=== PATIENT | female | born 1995 | race Asian ===

== ENCOUNTER 2021-10-24 19:52 | Emergency (ER) | payer SELFPAY ==
[2021-10-24 20:00] VITALS: BP 119/71; PULSE 117; RESP 17; TEMP 36.8; O2SAT 97; BMI 18.8
[2021-10-24] MEDS: SODIUM CHLORIDE 0.9% 1,000 ML 500 ML IV (20:47)
[2021-10-24 20:48] LABS: Add Manual Diff / Slide Review NO; Basophils Absolute Auto 100 /uL (0-100); Basophils Percent Auto 0.5 % (0-2); Eosinophils Absolute Auto 0 /uL (0-450); Eosinophils Percent Auto 0.1 % (2-4); Hematocrit 38.3 % (36-46); Hemoglobin 13.3 g/dL (12.0-16.0); Lymphocytes Absolute Auto 1200 /uL (1100-4500); Lymphocytes Percent Auto 9.8 % (25-40); Mean Corpuscular HGB Conc 34.8 % (30-36); Mean Corpuscular Hemoglobin 30.6 PG (26-34); Mean Corpuscular Volume 87.7 fL (80-100); Monocytes Absolute Auto 500 /uL (0-900); Monocytes Percent Auto 4.4 % (3-14); Neutrophils Absolute Auto 10200 /uL (1500-7000); Neutrophils Percent Auto 85.2 % (50-75); Platelet Count 213 X10^3/uL (150-400); Red Blood Cell Count 4.36 X10^6/uL (4.0-5.2); Red Cell Distribution Width 13.1 % (11.6-14.8)
--- NOTE | 2021-10-24 20:48 | ED_ITS ---
HPI - General Adult General Chief complaint: Abdominal Pain Stated complaint: Stomach Pain/Throwing Up Blood, Time Seen by Provider: 10/24/21 20:10 Source: patient Mode of arrival: Ambulatory History of Present Illness HPI narrative: 26-year-old female who is a at unknown dates although she states her last menstrual cycle was 08/01/2021 who is otherwise healthy he is here for evaluation of less than 24 hours of nausea and vomiting and lower abdominal pain. She denies any vaginal bleeding. No urinary symptoms. No change in bowel habits. She has yet to see Ob during this but is scheduled for nursing visit next week and a OB provider the week after. No fevers. Related Data Allergies Allergy/AdvReac Type Severity Reaction Status Date / Time No Known Drug Allergies Allergy Verified 10/24/21 20:00 Review of Systems Constitutional Constitutional: Denies fever(s) Cardiovascular Cardiovascular: Reports system reviewed and no additional complaints, except as documented Respiratory Respiratory: Reports system reviewed and no additional complaints, except as do cumented Gastrointestinal Gastrointestinal: Reports as per HPI and Reports system reviewed and no additional complaints, except as documented Genitourinary Genitourinary: Reports system reviewed and no additional complaints, except as documented Musculoskeletal Musculoskeletal: Reports system reviewed and no additional complaints, except as documented Integumentary/Breasts Skin/Breast: Reports system reviewed and no additional complaints, except as documented Neurologic Neurologic: Reports system reviewed and no additional complaints, except as docu mented Hematologic/Lymphatic On Anticoagulants: No Patient History Medical History Healthy adult Social History Smoking Status: Never smoker Smoking Status: Never smoker Substance Use Type: does not use Exam Initial Vital Signs Initial Vital Signs: Vital Signs Temperature 98.2 F 10/24/21 20:00 Pulse Rate 117 H 10/24/21 20:00 Respiratory Rate 17 10/24/21 20:00 Blood Pressure 119/71 10/24/21 20:00 Pulse Oximetry 97 10/24/21 20:00 Const General: cooperative and healthy appearing HENMT Head: normal to inspection and normocephalic Resp Effort & Inspection: normal respiratory effort Auscultation: clear to auscultation bilaterally Cardio Rate: tachycardic Rhythm: regular rhythm Skin General: no rashes or lesions noted Neuro General: patient alert, patient awake, patient oriented x3 and moves all extremities Speech: speech normal Extrem General: normal to inspection and capillary refill normal Psych Appearance: grossly normal and well kempt Course Orders Ordered: ED Orders 10/24/21 20:04 EKG-12 Lead Stat 10/24/21 20:10 Complete Blood Count AUTO DIFF Stat Comprehensive Metabolic Panel Stat HCG Quantitative /Beta subunit Stat Lipase Stat 10/24/21 20:49 US OB <= 14 weeks fetus Stat 10/24/21 21:23 ABO RH Type Stat Discontinued Medications Sodium Chloride (Normal Saline 0.9%) 1,000 mls @ 500 mls/hr IV BOLUS ONE Stop: 10/24/21 22:19 Last Infusion: 10/24/21 23:07 Dose: 0 mls/hr Documented by: Admin: 10/24/21 20:47 Dose: 500 mls/hr Documented by: ROMARIO Ondansetron HCl (Ondansetron 4 Mg/2 Ml Inj) 4 mg IV NOW ONE Stop: 10/24/21 20:49 Last Admin: 10/24/21 21:00 Dose: 4 mg Documented by: ROMARIO Vital Signs Vital signs: Vital Signs - 8 hr 10/24/21 20:00 10/24/21 21:37 10/25/21 00:09 Temperature 98.2 F Pulse Rate 117 H 104 H 127 H Respiratory Rate 17 20 Blood Pressure 119/71 91/50 L 121/55 L Pulse Oximetry 97 99 98 Medical Decision Making Lab Data Lab results reviewed: Yes I reviewed the patient's lab results. Result diagrams: 10/24/21 20:10 10/24/21 20:10 Labs: Lab Results 10/24/21 10/24/21 10/24/21 Range/Units 20:10 20:10 20:10 WBC 12.0 H (4.5-11.0) X10^3/uL RBC 4.36 (4.0-5.2) X10^6/uL Hgb 13.3 (12.0-16.0) g/dL Hct 38.3 (36-46) % MCV 87.7 (80-100) fL MCH 30.6 (26-34) PG MCHC 34.8 (30-36) % RDW 13.1 (11.6-14.8) % Plt Count 213 (150-400) X10^3/uL Neut % (Auto) 85.2 H (50-75) % Lymph % (Auto) 9.8 L (25-40) % [place] % (Auto) 4.4 (3-14) % Eos % (Auto) 0.1 L (2-4) % Baso % (Auto) 0.5 (0-2) % Neut # (Auto) 78452 H (1876-6484) /uL Lymph # (Auto) 1200 (0066-3551) /uL [place] # (Auto) 500 (0-900) /uL Eos # (Auto) 0 (0-450) /uL Baso # (Auto) 100 (0-100) /uL Sodium 137 (137-145) mmol/L Potassium 3.7 (3.4-5.1) mmol/L Chloride 101 (98-107) mmol/L Carbon Dioxide 25 (22-32) mmol/L BUN 15 (7-17) mg/dL Creatinine 0.58 (0.52-1.04) mg/dL Estimated GFR > 60 (>60) mL/min BUN/Creatinine Ratio 25.9 H (6-22) Glucose 104 H (70-100) mg/dL Calcium 9.8 (8.4-10.2) mg/dL Total Bilirubin 0.3 (0.2-1.3) mg/dL AST 35 (14-36) IU/L ALT 24 (<35) IU/L Alkaline Phosphatase 67 (38-126) U/L Total Protein 8.8 H (6.3-8.2) g/dL Albumin 4.9 (3.5-5.0) g/dL Globulin 3.9 (1.7-4.1) g/dL Albumin/Globulin Ratio 1.3 (1.0-2.8) Lipase 100 (23-300) U/L HCG, Quant 7637.1 mIU/mL Blood Type 10/24/21 Range/Units 21:23 WBC (4.5-11.0) X10^3/uL RBC (4.0-5.2) X10^6/uL Hgb (12.0-16.0) g/dL Hct (36-46) % MCV (80-100) fL MCH (26-34) PG MCHC (30-36) % RDW (11.6-14.8) % Plt Count (150-400) X10^3/uL Neut % (Auto) (50-75) % Lymph % (Auto) (25-40) % [place] % (Auto) (3-14) % Eos % (Auto) (2-4) % Baso % (Auto) (0-2) % Neut # (Auto) (1871-6548) /uL Lymph # (Auto) (0285-9059) /uL [place] # (Auto) (0-900) /uL Eos # (Auto) (0-450) /uL Baso # (Auto) (0-100) /uL Sodium (137-145) mmol/L Potassium (3.4-5.1) mmol/L Chloride (98-107) mmol/L Carbon Dioxide (22-32) mmol/L BUN (7-17) mg/dL Creatinine (0.52-1.04) mg/dL Estimated GFR (>60) mL/min BUN/Creatinine Ratio (6-22) Glucose (70-100) mg/dL Calcium (8.4-10.2) mg/dL Total Bilirubin (0.2-1.3) mg/dL AST (14-36) IU/L ALT (<35) IU/L Alkaline Phosphatase (38-126) U/L Total Protein (6.3-8.2) g/dL Albumin (3.5-5.0) g/dL Globulin (1.7-4.1) g/dL Albumin/Globulin Ratio (1.0-2.8) Lipase (23-300) U/L HCG, Quant mIU/mL Blood Type O Positive Imaging Data US - OB: Radiologist's Impression: [address] [address] Ultrasound Report Signed Patient: Arianne Livingston MR#: [id number] : 1995 Acct:[id number] Age/Sex: 26 / F Date of Service: 10/24/21 Loc: ED Accession Number: [id number] ?? Procedure: US OB <= 14 weeks fetus Ordering Provider: Sebastián Christine D.O. PROCEDURE:? US OB <= 14 WEEKS FETUS ? INDICATIONS:? PAIN ? OUTSIDE/PRIOR DATING DATA:? Last menstrual period (LMP):? 08/01/2021.? LMP-based estimated date of delivery (GABRIEL):? 05/08/2022.? First dating scan (date and location):? 10/24/2021.? Estimated date of delivery (GABRIEL) from first dating scan:? 06/14/2022. ? TECHNIQUE:? Real-time scanning was performed of the fetus and maternal pelvic organs, with image documentation.? Endovaginal scanning was also performed to better visualize the fetus and maternal ovaries.? ? COMPARISON:? None. ? FINDINGS:? ? Embryo:? There is an intrauterine with a gestational sac, yolk sac, and pole identified.? The pole appears small relative to the size of the gestational sac with a crown-rump length measuring 0.8 cm corresponding to gestational age of 6 weeks 5 days.? No heart motion was identified on grayscale images, M-mode Doppler, or color Doppler interrogation.? There are adjacent indistinct perigestational hypoechoic regions suggestive of subchorionic hematomas. ? Ovaries:? The ovaries were not discretely visualized.? No adnexal masses identified. ? ? IMPRESSION:? ? 1. Intrauterine demonstrated with a small pole relative to the gestational sac.? Given discordance of pole measurements compared to LMP as well as absence of visualized heart motion, the findings are compatible with demise. ? We strive to produce accurate, complete, and clear reports of imaging services. To assist us in improving patient care, this report was composed using standard report templates and voice recognition software. Therefore, it may contain abnormal punctuation, insertions and/or omissions. Occasional wrong-word or sound-alike substitutions may occur. Though we review the report and make efforts to correct it, we do recommend that the report be read carefully in proper context to recognize any text inaccuracies. ? ? ? Dictated by: Cooper Rivera M.D. on 10/24/2021 at 22:30 ? ? Approved by: Cooper Rivera M.D. on 10/24/2021 at 22:37 ECG Data Attestation: I personally reviewed and interpreted this ECG as follows: Interpretation: Sinus tachycardia Ventricular rate 109 Normal axis Normal QRS Normal QTC No ST T wave changes MDM Narrative Medical decision making narrative: The ultrasound today is concerning for IUFD. According to patient's last sexual contact and also last menstrual. She should be approximately 10-11 weeks gestation however ultrasound today is more consistent with a 6 week fetus. Patient is Rh positive. Had a discussion with the patient regarding the ultrasound findings. She was informed that the findings today are consistent with a miscarriage. We discussed options to include Cytotec verses waiting to see if she passes the products of conception on her own. Patient expressed understanding of the ultrasound findings and the options however she would like to hold on any Cytotec for now. Was given information for follow-up with OB. She was given strict return precautions with regard to vaginal bleeding. She expressed understanding and agreement. Discharge Plan Departure Patient Disposition: Home Clinical Impression: Miscarriage, Abdominal pain Instructions: DI for Miscarriage Activity Restrictions/Additional Instructions: Tomorrow you do need to contact the OB provider at the number provided below to schedule follow-up the beginning of next week. Return to the emergency department for any new symptoms to include fevers, bleeding more than several pads an hour for more than several hours in a row or any other worsening symptoms. I would not be surprised if over the next 24-48 hours you do start to have menstrual like cramping and also vaginal bleeding. Referrals: Miscellaneous,MD Phoebe [Primary Care Provider] - Luis Garcia MD [Physician] - Chelsi Haywood MD [Physician] -
--- NOTE | 2021-10-24 20:49 | DI.US.S_ITS ---
PROCEDURE: US OB <= 14 WEEKS FETUS INDICATIONS: PAIN OUTSIDE/PRIOR DATING DATA: Last menstrual period (LMP): 08/01/2021. LMP-based estimated date of delivery (GABRIEL): 05/08/2022. First dating scan (date and location): 10/24/2021. Estimated date of delivery (GABRIEL) from first dating scan: 06/14/2022. TECHNIQUE: Real-time scanning was performed of the fetus and maternal pelvic organs, with image documentation. Endovaginal scanning was also performed to better visualize the fetus and maternal ovaries. COMPARISON: None. FINDINGS: Embryo: There is an intrauterine with a gestational sac, yolk sac, and pole identified. The pole appears small relative to the size of the gestational sac with a crown-rump length measuring 0.8 cm corresponding to gestational age of 6 weeks 5 days. No heart motion was identified on grayscale images, M-mode Doppler, or color Doppler interrogation. There are adjacent indistinct perigestational hypoechoic regions suggestive of subchorionic hematomas. Ovaries: The ovaries were not discretely visualized. No adnexal masses identified. IMPRESSION: 1. Intrauterine demonstrated with a small pole relative to the gestational sac. Given discordance of pole measurements compared to LMP as well as absence of visualized heart motion, the findings are compatible with demise. We strive to produce accurate, complete, and clear reports of imaging services. To assist us in improving patient care, this report was composed using standard report templates and voice recognition software. Therefore, it may contain abnormal punctuation, insertions and/or omissions. Occasional wrong-word or sound-alike substitutions may occur. Though we review the report and make efforts to correct it, we do recommend that the report be read carefully in proper context to recognize any text inaccuracies. Dictated by: Cooper Rivera M.D. on 10/24/2021 at 22:30 Approved by: Cooper Rivera M.D. on 10/24/2021 at 22:37
[2021-10-24 20:50] LABS: Alanine Aminotransferase 24 IU/L (<35); Albumin 4.9 g/dL (3.5-5.0); Albumin Globulin Ratio 1.3 (1.0-2.8); Alkaline Phosphatase 67 U/L (38-126); Aspartate Aminotransferase 35 IU/L (14-36); BUN Creatinine Ratio 25.9 (6-22); Bilirubin Total 0.3 mg/dL (0.2-1.3); Blood Urea Nitrogen 15 mg/dL (7-17); Calcium 9.8 mg/dL (8.4-10.2); Carbon Dioxide 25 mmol/L (22-32); Chloride 101 mmol/L (98-107); Estimated Glomerular Filt Rate > 60 mL/min (>60); Globulin 3.9 g/dL (1.7-4.1); Glucose 104 mg/dL (70-100); HEMOLYSIS < 15 (0-50); Lipase 100 U/L (23-300); Potassium 3.7 mmol/L (3.4-5.1); Sodium 137 mmol/L (137-145); Total Protein 8.8 g/dL (6.3-8.2)
[2021-10-24] MEDS: ONDANSETRON 4 MG/2 ML INJ IV (21:00)
[2021-10-24 21:05] LABS: HCG Quantitative /Beta subunit 7637.1 mIU/mL
[2021-10-24 21:37] VITALS: BP 91/50; PULSE 104; O2SAT 99
[2021-10-25 00:09] VITALS: BP 121/55; PULSE 127; RESP 20; O2SAT 98
--- NOTE | 2021-10-25 00:16 | PC.NURSE ---
Provider aware of HR.
== END 2021-10-25 00:13 | disposition home or self-care (01) ==
PROVIDERS: Emergency Provider Emergency Medicine
DX: O02.1 Missed abortion (principal); R10.30 Lower abdominal pain, unspecified
CPT/HCPCS: 36415; 76801; 76817; 80053; 83690; 84702; 85025; 86900; 86901; 93005; 96361; 96374; 99284; J2405

== ENCOUNTER → 2021-10-26 11:16 | Outpatient (CLI) | payer SELFPAY ==
[2021-10-26 13:22] LABS: HCG Quantitative /Beta subunit 6553 mIU/mL
== END ==
PROVIDERS: Referring Provider Obstetrics & Gynecology; Visit Provider Obstetrics & Gynecology
DX: O20.9 Hemorrhage in early pregnancy, unspecified (principal)
CPT/HCPCS: 36415; 84702

== ENCOUNTER → 2021-10-29 11:08 | Outpatient (CLI) | payer SELFPAY ==
[2021-10-29 11:59] LABS: HCG Quantitative /Beta subunit 3311.3 mIU/mL
== END ==
PROVIDERS: Referring Provider Obstetrics & Gynecology; Visit Provider Obstetrics & Gynecology
DX: O03.9 Complete or unspecified spontaneous abortion without complication (principal)
CPT/HCPCS: 36415; 84702

== ENCOUNTER → 2021-10-31 09:21 | Outpatient (CLI) | payer SELFPAY ==
[2021-10-31 10:33] LABS: COVID19 -Nasal RAPID Negative (Negative)
== END ==
PROVIDERS: Visit Provider Obstetrics & Gynecology
DX: Z01.812 Encounter for preprocedural laboratory examination (principal); Z20.822 Contact with and (suspected) exposure to COVID-19
CPT/HCPCS: 87635

== ENCOUNTER 2021-11-01 07:36 | Day surgery (SDC) | payer SELFPAY ==
[2021-11-01] VITALS (9 sets, daily range): BP systolic 105–120; BP diastolic 55–74; PULSE 54–111; RESP 13–20; TEMP 36.6–36.9; O2SAT 97–99
--- NOTE | 2021-11-01 | PATH_ITS ---
[facility] Accession Number: [id number] . 01 Material submitted: . product of conception - PRODUCTS OF CONCEPTION . 01 Diagnosis: Uterine Contents: Immature chorionic villi with degenerative changes and decidual tissues. Negative for changes of gestational trophoblastic disease. [facility] 11/04/2021 1909 Local . 01 Electronically signed: . Sandra Parra MD, Pathologist NPI- [id number] . 01 Gross description: . Received in a container of formalin, labeled products of conception, are multiple hemorrhagic fragments of decidua admixed with spongy chorionic villi and blood clot measuring 5.0 x 4.0 x 1.5 cm in aggregate dimension. No parts or evidence of molar are grossly appreciated. Sport Psychologist sections are submitted in cassette A1. ([id number]) /R 11/02/2021 1734 Local . 01 Pathologist provided ICD-10: O02.1 . 01 CPT . 213495 Specimen Comment: A courtesy copy of this report has been sent to [phone] Performed at: 01 [facility] [address] [place] [address], [place], [place] [id number] MD Cooper Stanford MD Phone: [phone]
[2021-11-01] MEDS: LACTATED RINGERS 1,000 ML 84 ML IV (08:05)
--- NOTE | 2021-11-01 09:56 | P.HPOB_ITS ---
History of Present Illness History of Present Illness Reason for admission: missed Narrative: Guillermina is a 26-year-old , LMP 08/01/2021 who presents with positive tests, spotting bleeding, and cramping.? Patient was seen in the emergency department 10/24/2021 and her HCG at that time was 7637 but on 10/26 it had fallen to 6553 and today has fallen further to 3311.? The patient is having some a light bleeding and some cramping but has not passed any tissue.? BT O+. After consideration of all options, the patient has opted for suction curettage of the uterus and is admitted at this time for her surgery. [facility] Medical History Healthy adult Social History household members: significant other Smoking Status: Never smoker alcohol intake: never Meds Home Medications and Allergies Home Medications Medication Instructions Recorded Confirmed Type No Known Home Medications 10/29/21 10/30/21 History Allergies Allergy/AdvReac Type Severity Reaction Status Date / Time No Known Drug Allergies Allergy Verified 10/24/21 20:00 Review of Systems Review of Systems Narrative: Problem-specific ROS positives included in HPI Exam Vital Signs (past 8 hours): - 11/01/21 07:54 Temperature 97.8 F Pulse Rate 54 L Respiratory Rate 16 Blood Pressure 113/71 Pulse Oximetry 98 Oxygen Delivery Method Room Air Const General: cooperative, comfortable and well developed [facility] Head: normal to inspection, normocephalic and atraumatic Eyes General: appearance normal, both eyes and all related structures Neck Neck: normal visual inspection Resp Effort & Inspection: normal respiratory effort and able to speak in complete sen tences Auscultation: clear to auscultation bilaterally Cardio Rate: regular rate Rhythm: regular rhythm Heart Sounds: S1 normal, S2 normal and no murmurs GI Inspection: normal to inspection Palpation: soft and no hepatosplenomegaly General: other (Exam deferred pending EUA) Extrem Right lower extremity: normal to inspection Psych Appearance: grossly normal Mental Status: mental status grossly normal Speech and Movement: speech and movement normal Mood: congruent mood Affect: normal affect Attitude: cooperative Thought Process: normal Thought Content: normal Judgment: judgment good Assessment & Plan Assessment and plan (1) Missed : Status: Acute Plan 1. Patient counseled regarding alternatives, risks, benefits, and potential complications associated with suction curettage of the uterus. With full understanding of the above, a written consent was executed, signed, and witnessed this date. Time Spent With Patient Critical Care time: I spent a total of [] minutes of critical care time on this patient's care today; this time is exclusive of procedural time.
--- NOTE | 2021-11-01 10:00 | PM.PREOP ---
Pre-operative Note COVID-19 COVID-19 status: Negative Result date/Date tested (Pos, Neg/Pending): 10/31/21 Criteria for continued procedure: Non-surgical alternatives not available or appropriate per current SOC Interval Note History & Physical reviewed/Exam performed by Physician: Yes Changes to H&P: No
--- NOTE | 2021-11-01 10:21 | SUR.OPER ---
Lithotomy on padded OR bed, head on pillow, arms secured on padded arm boards at <90 degrees abduction. Legs secured in padded yellow fins stirrups.
[2021-11-01] MEDS: METHYLERGONOVINE 0.2 MG/ML VIAL IM (10:49)
--- NOTE | 2021-11-01 10:54 | P.OP_ITS ---
Operative Date/Time/Diagnoses Date of procedure: 11/01/21 Time of procedure: 09:50 Pre-op diagnosis: Missed Post-op diagnosis: same Procedure & Clinicians Procedure: Procedures Operation Date: 11/01/21 09:15 Actual Procedure Side Surgeon p Suction Curettage of the Uterus Luis Garcia MD Indications: Guillermina is a 26-year-old , LMP 08/01/2021 who presents with positive tests, spotting bleeding, and cramping.? Patient was seen in the emergency department 10/24/2021 and her HCG at that time was 7637 but on 10/26 it had fallen to 6553 and today has fallen further to 3311.? The patient is having some a light bleeding and some cramping but has not passed any tissue.? BT O+.? After consideration of all options, the patient has opted for suction curettage of the uterus and is admitted at this time for her surgery. Surgeon: Luis Garcia Anesthesia Type: General Operative Notes Findings: Moderate amount of POC's within the endometrial cavity. Pre-evacuation the uterus is @ 8 weeks in size and 6 weeks size post-evacuation. Closure Type: not applicable Specimen(s): products of conception Estimated blood loss (mL): 25 Blood products transfused: none Procedure in detail: With the patient under satisfactory general anesthesia in the modified dorsal lithotomy position, the perineum, vagina, and lower abdomen were prepped and draped in the usual fashion for D&C. A pre-surgical safety time-out was then ta adria in accordance with [facility] Main OR protocols. A bivalve speculum was inserted in the vagina, the cervix visualized, and the anterior lip grasped with a single-tooth tenaculum. Sequential dilation of the endocervical canal with Hegar dilators was performed to a diameter of 9 mm. An 8 mm curved suction curette was then introduced into the endometrial cavity and suction curettage performed. Moderate amounts of necrotic POCs were obtained and submitted in formalin for pathologic evaluation. Once complete evacuation of the uterus was assured, the suction curette was removed, the tenaculum removed from the anterior lip of the cervix, and the speculum removed from the vagina. Patient received Pitocin 10 mg IM intraop. The patient was then awakened from surgery and transferred to the PACU for a period of observation and recovery having tolerated the procedure well. Complications: none Post-operative Condition: stable Disposition: PACU Plan for aftercare: Routine post-op care. Vibramycin 100 mg PO BID x 5 days. Follow-up in 2 weeks or as needed.
--- NOTE | 2021-11-01 11:53 | SUR.PHASEII ---
Assumed care from Sofi d/c instructions discussed with , pt not wanting to hear at that time. Pt left when ready and left in stable condition.
== END 2021-11-01 11:42 | disposition home or self-care (01) ==
PROVIDERS: Referring Provider Obstetrics & Gynecology; Visit Provider Obstetrics & Gynecology
PROC: (CPT 58120; principal; 2021-11-01 09:15)
DX: O02.1 Missed abortion (principal); Z3A.10 10 weeks gestation of pregnancy
CPT/HCPCS: 59820; J1100; J1885; J2210; J2250; J2704; J3010

== ENCOUNTER 2022-10-23 12:49 | Emergency (ER) | payer OTHER, SELFPAY ==
[2022-10-23 12:51] VITALS: BP 109/59; PULSE 116; RESP 15; TEMP 36.5; O2SAT 99
--- NOTE | 2022-10-23 13:06 | ED.ABDPAIN ---
HPI - Abdominal Pain General Chief Complaint: Abdominal Pain Stated Complaint: Right lower stomach pain Time Seen by Provider: 10/23/22 12:59 Source: patient Mode of arrival: Ambulatory History of Present Illness HPI narrative: 27-year-old female previously healthy nonsmoker presents with a chief complaint of right lower quadrant pain for the past 2 days or so. She states that a few days ago she noticed some right-sided back pain with an episode of vomiting and the following day developed right lower quadrant pain in addition to the back pain. She states it is largely present and seems to be worse when she moves and improves with rest. She is had a poor appetite and continues to be nauseated. She denies any fever or chills. Her last menstrual cycle was about 1 month ago. She denies runny nose, sore throat or cough. She has been a bit constipated. She denies any diarrhea, dysuria, frequency, urgency, vaginal bleeding or discharge. She states she is not sexually active. She had been seen at an outside facility last night with reassuring labs but your imaging. Related Data Previous Rx's Medication Instructions Recorded ketorolac 10 mg tablet 10 mg PO Q6H PRN pain #14 tabs 10/23/22 ondansetron 4 mg disintegrating 4 mg PO TID-QID PRN nausea and 10/23/22 tablet vomiting #10 tabs Allergies Allergy/AdvReac Type Severity Reaction Status Date / Time No Known Drug Allergies Allergy Verified 10/23/22 12:51 Review of Systems Review of Systems Narrative: GENERAL: Denies chills, fatigue, malaise, fever, sweats. HEENT: Denies sinus pain, ear pain, sore throat, difficulty swallowing, dizziness. RESPIRATORY: Denies dyspnea, cough, wheezing, hemoptysis, sputum. CARDIOVASCULAR: Denies chest pain, palpitations, orthopnea, edema, GASTROINTESTINAL: See HPI : See HPI MUSCULOSKELETAL: denies weakness, joint pain, or bony pain SKIN: Denies rash, skin lesions, or other NEUROLOGIC: Denies weakness, headache, numbness, change in speech, confusion, seizures, incoordination. PSYCHIATRIC: No concerning psychosocial issues. 12 point review of systems is negative except for those stated above Patient History Medical History Anemia Headache Healthy adult History of Helicobacter pylori infection Scoliosis Surgical History Anesthesia History of knee surgery (~2006) Family History Mother Prediabetes Grandmother Hypertension Grandmother Breast cancer Social History household members: significant other Smoking Status: Never smoker alcohol intake: never Smoking Status: Never smoker Substance Use Type: does not use Exam Narrative Exam Narrative: GENERAL: [27] year old patient appears stated age. Well-developed patient, in mild distress. Obviously uncomfortable, rubbing her right lower abdomen HEAD: Atraumatic. Normocephalic. EYES: Pupils equal round and reactive. Extraocular motions intact. No scleral icterus. No injection or drainage. ENT: Nose without bleeding, purulent drainage. Throat without erythema, tonsillar hypertrophy or exudate. Airway patent. NECK: Trachea midline. Non tender CARDIOVASCULAR: Regular rate and rhythm without murmurs, gallops, or rubs. RESPIRATORY: Clear to auscultation. Breath sounds equal bilaterally. No wheezes, rales, or rhonchi. GASTROINTESTINAL: Abdomen soft, tender in the right lower quadrant r, nondistended. EXTREMITIES: No edema or joint tenderness. BACK: Nontender without deformity or crepitance. No flank tenderness. NEURO: AOx3. SKIN: No rash or erythema of visible areas Initial Vital Signs Initial Vital Signs: Vital Signs Temperature 97.7 F 10/23/22 12:51 Pulse Rate 116 H 10/23/22 12:51 Respiratory Rate 15 10/23/22 12:51 Blood Pressure 109/59 L 10/23/22 12:51 Pulse Oximetry 99 10/23/22 12:51 Oxygen Delivery Method Room Air 10/23/22 12:51 Course Orders Ordered: Discontinued Medications Sodium Chloride (Normal Saline 0.9%) 1,000 mls @ 1,000 mls/hr IV BOLUS ONE Stop: 10/23/22 14:34 Last Infusion: 10/23/22 14:40 Dose: 0 mls/hr Documented By: Admin: 10/23/22 13:44 Dose: 1,000 mls/hr Documented By: TWYLA Ketorolac Tromethamine (Ketorolac 30 Mg/Ml Vial) 15 mg IV NOW ONE Stop: 10/23/22 13:36 Last Admin: 10/23/22 13:45 Dose: 15 mg Documented By: TWYLA Ondansetron HCl (Ondansetron 4 Mg/2 Ml Inj) 4 mg IV NOW PRN PRN Reason: Nausea And Vomiting Last Admin: 10/23/22 13:44 Dose: 4 mg Documented By: TWYLA Vital Signs Vital signs: Vital Signs - 8 hr 10/23/22 12:51 Temperature 97.7 F Pulse Rate 116 H Respiratory Rate 15 Blood Pressure 109/59 L Pulse Oximetry 99 Oxygen Delivery Method Room Air MDM - Abdominal Pain Lab Data 10/23/22 13:21 10/23/22 13:21 Labs: Lab Results 10/23/22 10/23/22 Range/Units 13:21 13:21 WBC 8.6 (4.5-11.0) X10^3/uL RBC 4.09 (4.0-5.2) X10^6/uL Hgb 12.3 (12.0-16.0) g/dL Hct 35.6 L (36-46) % MCV 87.0 (80-100) fL MCH 30.1 (26-34) PG MCHC 34.7 (30-36) % RDW 12.1 (11.6-14.8) % Plt Count 188 (150-400) X10^3/uL Neut % (Auto) 81.0 H (50-75) % Lymph % (Auto) 11.7 L (25-40) % Boundary % (Auto) 6.6 (3-14) % Eos % (Auto) 0.4 L (2-4) % Baso % (Auto) 0.3 (0-2) % Neut # (Auto) 7000 (8858-4224) /uL Lymph # (Auto) 1000 L (8799-4820) /uL Boundary # (Auto) 600 (0-900) /uL Eos # (Auto) 0 (0-450) /uL Baso # (Auto) 0 (0-100) /uL Sodium 136 L (137-145) mmol/L Potassium 3.3 L (3.4-5.1) mmol/L Chloride 104 (98-107) mmol/L Carbon Dioxide 25 (22-32) mmol/L BUN 11 (7-17) mg/dL Creatinine 0.60 (0.52-1.04) mg/dL Estimated GFR > 60 (>60) mL/min BUN/Creatinine Ratio 18.3 (6-22) Glucose 107 H (70-100) mg/dL Calcium 8.8 (8.4-10.2) mg/dL Total Bilirubin 0.8 (0.2-1.3) mg/dL AST 23 (14-36) IU/L ALT 15 (<35) IU/L Alkaline Phosphatase 53 (38-126) U/L Total Protein 7.7 (6.3-8.2) g/dL Albumin 4.1 (3.5-5.0) g/dL Globulin 3.6 (1.7-4.1) g/dL Albumin/Globulin Ratio 1.1 (1.0-2.8) Lipase 66 (23-300) U/L Point of care testing: Point of Care Testing Test Results Negative Urine Dip Bedside Urine Glucose Negative Bedside Urine Bilirubin - Negative Bedside Urine Ketone - Negative Urine Specific [place] 1.010 Bedside Urine Occult Blood - Negative Bedside Urine pH 7.0 Bedside Urine Protein +/- 15 Bedside Urine Urobilinogen - Negative Bedside Urine Nitrite - Negative Bedside Urine Leukocytes - Negative Esterase MDM Narrative Medical decision making narrative: [27] year old patient presents with right lower quadrant pain Multiple etiologies for patient's symptoms considered including, but not limited to: [Ovarian versus kidney stone versus appendicitis versus other] Prior Charts reviewed in our EMR Primary Historian: patient Labs reviewed and interpreted by myself: No leukocytosis or left shift Imaging reviewed: Complex right ovarian cyst Patient's symptoms improved over duration of stay with above-stated therapies. Pain is well tolerated, she is tolerating orals, no indications for further evaluation at this time Findings and discharge diagnosis discussed with patient/family followed by verbalization of understanding Return precautions discussed with patient/family whom verbalize understanding of diagnosis and plan Discharge Plan Departure Patient Disposition: Home Clinical Impression: Ovarian cyst Instructions: DI for Ovarian Cyst Activity Restrictions/Additional Instructions: *You have been diagnosed with [right lower quadrant pain due to ovarian cyst] *What to do: *Please continue to take your regular medications as directed. [x ] New medication prescriptions sent to your pharmacy: [ [facility]] [ ] New medication written as a paper prescription [ ] No new medications given *Please follow up with your primary care provider in 2-3 days, call for an appointment. Let them know you were seen in the Emergency Department and that we ask that you be seen in follow up. We will electronically transmit a record of today's note if your PCP is in our system * as we discussed I have included contact information for local gynecology who would be appropriate to follow-up for your cyst. *Return to Emergency Department if you should have any new, worsening or concerning symptoms, such as [fever greater than 101 F, shaking chills, worsening pain, persistent vomiting or other bothersome symptoms] Prescriptions: New ketorolac 10 mg tablet 10 mg PO Q6H PRN (Reason: pain) Qty: 14 0RF ondansetron 4 mg tablet,disintegrating 4 mg PO TID-QID PRN (Reason: nausea and vomiting) Qty: 10 0RF Referrals: Yeimy Mulligan MD [Physician] - Provider,Lea CASTRO [Primary Care Provider] - Stand Alone Forms: Patient Portal/API
--- NOTE | 2022-10-23 13:28 | DI.US.S_ITS ---
PROCEDURE: US PELVIC COMPLETE INDICATIONS: RLQ pain TECHNIQUE: Real-time scanning was performed of the pelvic organs, with image documentation. Additional endovaginal scanning was necessary due to incomplete visualization of the adnexal and endometrial structures by transabdominal scanning. COMPARISON: None. FINDINGS: Uterus: Uterus is anteverted and normal in size at 7.1 x 3.7 x 4.7 cm. The myometrium is homogeneous. The endometrium measures 8.8 mm combined thickness. Ovaries: The right ovary measures 1.9 x 4.4 x 1.8 cm, with a calculated ovarian volume of 7.6 cc. The left ovary measures 2.4 x 1.8 x 3.9 cm, with a calculated ovarian volume of 8.8 cc. The ovaries have a normal sonographic appearance. Less than 12 follicles can be seen in each ovary. No adnexal masses are seen. There is a 1.8 x 1.3 x 1.7 cm complex cyst in right ovary. A 2.6 x 2.4 x 2.7 cm hypoechoic nodule in left ovary is compatible with a ovarian dermoid. There are prominent vessels in pelvis adjacent to the left ovary. Other: No pathologic free abdominal or pelvic fluid. IMPRESSION: 1. A 1.8 x 1.3 x 1.7 cm complex cyst in right ovary. Consider a short interval follow-up pelvic ultrasound in 6 -12 weeks. 2. A 2.6 x 2.4 x 2.7 cm left ovarian dermoid. 3. Prominent pelvic vessels in the left adnexa, probably enlarged gonadal veins. The findings could be associated with pelvic congestion syndrome. 4. Normal uterus. We strive to produce accurate, complete, and clear reports of imaging services. To assist us in improving patient care, this report was composed using standard report templates and voice recognition software. Therefore, it may contain abnormal punctuation, insertions and/or omissions. Occasional wrong-word or sound-alike substitutions may occur. Though we review the report and make efforts to correct it, we do recommend that the report be read carefully in proper context to recognize any text inaccuracies. Dictated by: Mynor Lay M.D. on 10/23/2022 at 15:32 Approved by: Mynor Lay M.D. on 10/23/2022 at 15:37
[2022-10-23 13:30] VITALS: BMI 18.8
[2022-10-23] MEDS: ONDANSETRON 4 MG/2 ML INJ IV (13:44)
[2022-10-23] MEDS: SODIUM CHLORIDE 0.9% 1,000 ML 1000 ML IV (13:44)
[2022-10-23] MEDS: KETOROLAC 30 MG/ML VIAL 15 MG IV (13:45)
[2022-10-23 13:47] LABS: Add Manual Diff / Slide Review NO; Basophils Absolute Auto 0 /uL (0-100); Basophils Percent Auto 0.3 % (0-2); Eosinophils Absolute Auto 0 /uL (0-450); Eosinophils Percent Auto 0.4 % (2-4); Hematocrit 35.6 % (36-46); Hemoglobin 12.3 g/dL (12.0-16.0); Lymphocytes Absolute Auto 1000 /uL (1100-4500); Lymphocytes Percent Auto 11.7 % (25-40); Mean Corpuscular HGB Conc 34.7 % (30-36); Mean Corpuscular Hemoglobin 30.1 PG (26-34); Monocytes Absolute Auto 600 /uL (0-900); Monocytes Percent Auto 6.6 % (3-14); Neutrophils Absolute Auto 7000 /uL (1500-7000); Platelet Count 188 X10^3/uL (150-400); Red Blood Cell Count 4.09 X10^6/uL (4.0-5.2); Red Cell Distribution Width 12.1 % (11.6-14.8); White Blood Cell Count 8.6 X10^3/uL (4.5-11.0)
[2022-10-23 14:02] LABS: Alanine Aminotransferase 15 IU/L (<35); Albumin 4.1 g/dL (3.5-5.0); Albumin Globulin Ratio 1.1 (1.0-2.8); Alkaline Phosphatase 53 U/L (38-126); Aspartate Aminotransferase 23 IU/L (14-36); BUN Creatinine Ratio 18.3 (6-22); Bilirubin Total 0.8 mg/dL (0.2-1.3); Blood Urea Nitrogen 11 mg/dL (7-17); Calcium 8.8 mg/dL (8.4-10.2); Carbon Dioxide 25 mmol/L (22-32); Chloride 104 mmol/L (98-107); Estimated Glomerular Filt Rate > 60 mL/min (>60); Globulin 3.6 g/dL (1.7-4.1); Glucose 107 mg/dL (70-100); HEMOLYSIS < 15 (0-50); Lipase 66 U/L (23-300); Potassium 3.3 mmol/L (3.4-5.1); Sodium 136 mmol/L (137-145); Total Protein 7.7 g/dL (6.3-8.2)
[2022-10-23 14:39] VITALS: BP 108/62; PULSE 89; O2SAT 97
== END 2022-10-23 15:11 | disposition home or self-care (01) ==
PROVIDERS: Emergency Provider Emergency Medicine
DX: N83.201 Unspecified ovarian cyst, right side (principal)
CPT/HCPCS: 36415; 76830; 76856; 80053; 81003; 81025; 83690; 85025; 96374; 96375; 99284; J1885; J2405

== ENCOUNTER → 2022-12-29 08:40 | Outpatient (CLI) | payer OTHER, SELFPAY ==
--- NOTE | 2022-12-29 08:41 | DI.US.S_ITS ---
PROCEDURE: US PELVIC COMPLETE INDICATIONS: RIGHT OVARIAN CYST; LEFT OVARIAN DERMOID TECHNIQUE: Real-time scanning was performed of the pelvic organs, with image documentation. Additional endovaginal scanning was necessary due to incomplete visualization of the adnexal and endometrial structures by transabdominal scanning. COMPARISON: [facility], US, US PELVIC COMPLETE, 10/23/2022, 14:10. FINDINGS: Uterus: Uterus is anteverted and normal in size at 5.9 x 2.8 x 4.2 cm. The myometrium is homogeneous. The endometrium measures 5 mm combined thickness. Ovaries: The right ovary measures 1.9 x 2.8 x 1.9 cm, with a calculated ovarian volume of 5 cc. The left ovary measures 3.6 x 2.7 x 3.7 cm, with a calculated ovarian volume of 19 cc. The left ovary demonstrates a hyperechoic focus that measures 2.8 x 2.5 x 2.6 cm, previously measuring 2.6 x 2.4 x 2.7 cm. More than 12 follicles can be seen in each ovary. No adnexal masses are seen. Other: A mild amount of free pelvic fluid is seen, which is considered to be within physiologic limits. IMPRESSION: The previously seen complex right ovarian cyst is no longer seen. Stable left ovarian dermoid. More than 12 follicles can be seen involving each ovary, which is consistent with polycystic ovarian syndrome. We strive to produce accurate, complete, and clear reports of imaging services. To assist us in improving patient care, this report was composed using standard report templates and voice recognition software. Therefore, it may contain abnormal punctuation, insertions and/or omissions. Occasional wrong-word or sound-alike substitutions may occur. Though we review the report and make efforts to correct it, we do recommend that the report be read carefully in proper context to recognize any text inaccuracies. Dictated by: Dmitry Washburn M.D. on 12/29/2022 at 16:39 Approved by: Dmitry Washburn M.D. on 12/29/2022 at 16:41
== END ==
PROVIDERS: PCP Student in an Organized Health Care Education/Training Program; Referring Provider Obstetrics & Gynecology; Visit Provider Obstetrics & Gynecology
DX: N83.201 Unspecified ovarian cyst, right side (principal); D27.1 Benign neoplasm of left ovary
CPT/HCPCS: 76830; 76856; 93976